=== PATIENT | female | born 1965 | race Caucasian/White ===

== ENCOUNTER 2018-05-26 14:14 | Emergency (ER) | payer OTHER ==
[2018-05-26 14:40] VITALS: BP 137/77
--- NOTE | 2018-05-26 14:47 | UC ---
UC General HPI - HPI Summary HPI Summary: PT C/O SINUS PAIN AND CONGESTION WITH GREEN DISCHARGE AND SOME COUGH WITH WHEEZING AND CONGESTION FOR ABOUT 1 MONTH. + HX ASTHMA. - History of Current Complaint Chief Complaint: UCRespiratory Stated Complaint: UPPER RESPIRATORY COMPLAINT Time Seen by Provider: 05/26/18 14:30 Hx Obtained From: Patient Hx Last Menstrual Period: January Onset/Duration: Gradual Onset Timing: Constant Pain Intensity: 0 Associated Signs & Symptoms: Positive: Cough, SOB, Wheezing. Negative: Chest Pain, Fever, Headache - Allergy/Home Medications Allergies/Adverse Reactions: Allergies Allergy/AdvReac Type Severity Reaction Status Date / Time MS Aspirin [Aspirin] Allergy Severe Hives Verified 05/26/18 14:29 MS Cephalexin [From Keflex] Allergy Severe Hives Verified 05/26/18 14:29 MS Cortisone [Cortisone] Allergy Severe Hives Verified 05/26/18 14:29 MS Erythromycin Allergy Severe Hives Verified 05/26/18 14:29 [Erythromycin] MS Penicillins [Penicillins] Allergy Severe Hives Verified 05/26/18 14:29 MS Prednisone [Prednisone] Allergy Severe hives/swell Verified 05/26/18 14:29 ing/respira tory MS Latex [Latex] Allergy Intermediate Rash Verified 05/26/18 14:29 novacaine Allergy Severe Swelling Uncoded 05/26/18 14:29 Home Medications: Home Medications Albuterol 2.5MG/3ML (0.083%)* [Ventolin 2.5 MG/3 ML NEB.KELY*] 2.5 mg INH Q6H PRN 05/26/18 [History Confirmed 05/26/18] Cholecalciferol (Vitamin D3) [Vitamin D3] 1,000 unit PO DAILY 05/26/18 [History Confirmed 05/26/18] Docusate CAP* [Colace Cap*] 100 mg PO DAILY 05/26/18 [History Confirmed 05/26/18 ] Heart Medication 1 tab PO DAILY 05/26/18 [History] Sertraline* [Zoloft*] 50 mg PO DAILY 05/26/18 [History Confirmed 05/26/18] metFORMIN* [Glucophage 1000 MG TAB *] 1,000 mg PO BID 05/26/18 [History Confirmed 05/26/18] PMH/Surg Hx/FS Hx/Imm Hx Endocrine History: Diabetes, Dyslipidemia Cardiovascular History: Hypertension Respiratory History: Asthma Psychological History: Depression - Surgical History Surgical History: Yes Surgery Procedure, Year, and Place: appy. elisa. ovaries removed/ fallopian tubes removed. . cardiac stent - Family History Known Family History: Positive: Non-Contributory - Social History Alcohol Use: None Substance Use Type: None Smoking Status (MU): Heavy Every Day Tobacco Smoker Type: Cigarettes Amount Used/How Often: 1 PPD - Immunization History Most Recent Influenza Vaccination: not this season Review of Systems All Other Systems Reviewed And Are Negative: Yes ENT: Positive: Nasal Discharge, Sinus Congestion, Sinus Pain/Tenderness Respiratory: Positive: Shortness Of Breath, Cough Cardiovascular: Negative: Chest Pain Physical Exam Triage Information Reviewed: Yes Appearance: Well-Appearing Vital Signs: Initial Vital Signs Temp 97.7 F 05/26/18 14:35 Pulse 89 05/26/18 14:35 Resp 18 05/26/18 14:35 BP 137/77 05/26/18 14:35 Pulse Ox 95 05/26/18 14:35 Vital Signs Reviewed: Yes Eyes: Positive: Conjunctiva Clear ENT: Positive: Pharynx normal, Nasal congestion, Nasal drainage - YELLOW, TMs normal, Sinus tenderness Neck: Positive: Supple, Nontender, No Lymphadenopathy Respiratory: Positive: Lungs clear, No respiratory distress, Decreased breath sounds Cardiovascular: Positive: RRR, No Murmur Abdomen Description: Positive: Nontender Bowel Sounds: Positive: Present Musculoskeletal: Positive: ROM Intact Neurological: Positive: Alert Psychological: Positive: Age Appropriate Behavior Skin Exam: Normal Course/Dx - Diagnoses Provider Diagnosis: Sinusitis, Asthma Discharge - Sign-Out/Discharge Documenting (check all that apply): Patient Departure All imaging exams completed and their final reports reviewed: No Studies - Discharge Plan Condition: Stable Disposition: HOME Prescriptions: Albuterol 2.5MG/3ML (0.083%)* [Ventolin 2.5 MG/3 ML NEB.KELY*] 2.5 mg INH Q6H PRN #1 box PRN Reason: Cough Albuterol HFA INHALER* [Ventolin HFA Inhaler*] 2 puff INH Q6H #1 mdi DOXYcycline CAP(*) [DOXYcycline 100MG CAP(*)] 100 mg PO BID 10 Days #20 cap Patient Education Materials: Asthma (DC), Sinusitis (ED) Referrals: Vibha Siegel MD [Primary Care Provider] - 7 Days Additional Instructions: USE THE INHALER OR NEBULIZER BUT NOT BOTH AT THE SAME TIME. - Billing Disposition and Condition Condition: STABLE Disposition: Home
== END 2018-05-26 14:55 | disposition home or self-care (01) ==
LOC: UCCORT 14:14
DX: J32.9 Chronic sinusitis, unspecified (principal); J45.909 Unspecified asthma, uncomplicated; E11.9 Type 2 diabetes mellitus without complications; I10 Essential (primary) hypertension; Z79.84 Long term (current) use of oral hypoglycemic drugs; F17.210 Nicotine dependence, cigarettes, uncomplicated
CPT/HCPCS: 99202; G0463

== ENCOUNTER 2018-12-10 10:16 | Emergency (ER) | payer OTHER ==
--- OUTSIDE RECORDS SUMMARY | 2018-12-10 10:38 | XMS REPORT | Continuity of Care Document ---
:1965 External Reference #:[id number] Author Name Janine Scales PA Address [address] [facility] [address] Care Team Providers Name Role Phone Suha Ornelas MD - Physical Medicine Care Team Information [employer] Vibha Siegel MD - Internal Medicine Care Team Information [employer] Rojelio Ahuja MD - Endocrinology, Care Team Information [employer] Diabetes & Metabolism Angie Garcia MD - Family Medicine Care Team Information [employer] Mindy Bonilla Endocrinology Care Team Information [employer] Operator Koby Lozoya MD - Internal Care Team Information [employer] Medicine [facility] - Care Team Information [employer]house [employer] Operator [phone] Dermatopathology Problems Active Problems Provider Date Chest pain Adan Parsons MD, PhD Onset: 08/22/2010 Tobacco user Adan Parsons MD, PhD Onset: 08/22/2010 Coronary arteriosclerosis Adan Parsons MD, PhD Onset: 08/22/2010 Mixed hyperlipidemia Kait Hebert ANP Onset: 12/28/2010 Benign essential hypertension Kait Hebert ANP Onset: 12/28/2010 Angina pectoris Adan Parsons MD, PhD Onset: 12/28/2010 Thyroid function tests abnormal Kait Hebert ANP Onset: 11/22/2013 Chest pain Kait Hebert ANP Onset: 11/22/2013 Cervical disc disorder Kait Hebert ANP Onset: 11/22/2013 Muscle, ligament and fascia disorders Kait Hebert ANP Onset: 07/26/2014 Syncope and collapse Kait Hebert ANP Onset: 09/08/2014 Atherosclerotic heart disease of [place] Kait Hebert ANP Onset: 2014 coronary artery with unspecified angina pectoris Essential hypertension Kait Hebert ANP Onset: 12/02/2014 Disorder of breast Melvina Turner DO Onset: 02/21/2016 Disorder of skin and/or subcutaneous tissue Melvina Turner DO Onset: 02/20 Vitamin deficiency Melvina Turner DO Onset: 02/21/2016 Secondary polycythemia Melvina Turner DO Onset: 02/28/2016 Type 2 diabetes mellitus Vibha Siegel MD Onset: 03/13/2016 Pseudomonas aeruginosa infection of nail ErichFlavio MD,FACS Onset: 03/26 Non-toxic multinodular goiter Melvina Turner DO Onset: 01/14/2017 Type 2 diabetes mellitus with ulcer Vibha Siegel MD Onset: 02/14/2017 Social History Type Date Description Comments Sex Unknown Tobacco Use Start: Unknown Current Cigarette Smoker 1 x 30 years Pack Daily Smokeless Tobacco Never Used Smokeless Tobacco ETOH Use Denies alcohol use Tobacco Use Start: 02/24/18 End: E-Cig Unknown Recreational Drug Use Denies Drug Use Tobacco Use Start: Unknown Patient is a current 1 ppd smoker, smokes every day Tobacco Use Start: Unknown End: E-Cig Unknown Smoking Status Reviewed: 10/02/18 E-Cig Enjoy Exercising Does not enjoy exercising Tattoo/Piercing Negative For Tattoo Allergies, Adverse Reactions, Alerts Active Allergies Reaction Severity Comments Date Aspirin HIVES she is tolerating low dose 05/30/2009 Asa Cortisone 08/16/2010 Procaine HCL 03/07/2015 Opioids - Morphine Analogues 03/07/2015 Penicillins 03/07/2015 Cephalexin 03/07/2015 Erythromycin Base 03/07/2015 Latex 12/09/2012 Zinc 02/28/2016 Inactive Allergies Ranexa hives,hot flashes Penicillin HIVES 05/30/2009 Novocain HIVES 05/30/2009 Elmiron Hives 09/29/2009 Latex 12/12/2009 Tetracycline hives 07/10/2010 Keflex hives 07/10/2010 Amoxicillin 08/16/2010 Opioids 08/16/2010 Morphine 08/16/2010 Erythromycin 08/16/2010 Plavix 03/14/2015 Medications Active Medications SIG Qnty Indications Ordering Date Provider Freestyle Lite Test Use for testing 540units Vibha Siegel, 11/20/2018 Strips glucose levels 3 MD times daily and 1 - 2 hours after meals. Basaglar Kwikpen inject 15 units 15ml E11.621 Vibha Siegel, 11/20/2018 subcutanously daily 100Unit/ML Solution Pen-Inject Furosemide 1 by mouth twice a 30tabs R60.9 Donnell Siegela, 11/20/2018 20mg day prn swelling MD Tablets Pen [place] 1/2" use with Basalgar 100units E11.621 Vibha Siegel, 2018 29G daily X 12mm Misc Pioglitazone HCL 1 po daily 30tabs E11.621 Donnell Siegela, 10/02/2018 30mg MD Tablets Nitroglycerin take one under 14tabs R07.89 iVbha Siegel, 08/24/2018 0.4mg tongue every 5 min Tablets Sub for chest pain if needed max dose 3 in 15 min Docusate Sodium Take One Capsule By 60caps K59.00 Raimundo, 03/17/2018 100mg Mouth Twice A Day as MD Shukir Capsules Needed SM Aspirin Adult Low Take One Tablet By 30tabs Danilo, 03/09/2018 Strength Mouth Every Day Clayton Erazo, 81mg Tablets M.DNorma, [facility] Vitamin E High 1 cap by mouth 30caps Vibha Siegel, 08/11/2017 Potency everyday 400Unit Capsules Freestyle Lite Blood use as directed to 1units E11.621 Vibha Siegel, Glucose Monitoring check fasting blood MD System sugars Device Losartan Potassium take one tablet by 30tabs Vibha Siegel, 02/14/2017 mouth every day 50mg Tablets Ventolin HFA 1-2 puffs every 4-6 8gm Vibha Siegel, 01/03/2017 hours as needed for MD 108(90Base) mcg/Act cough and shortness Aerosol of breath Albuterol Sulfate Use 1 Vial Via 75units Vibha Siegel, 01/03/2017 Nebulizer Every 6 MD (2.5mg/3ML) 0.083% Hours as Needed For Nebulizer For Shortness Of Breath, Cough, Wheezing Vitamin D3 Take One Capsule By 30caps E56.9 Vibha Siegel, 12/20/2016 2000Unit Mouth Every Day Capsules Blood Glucose check blood sugars 1units Vibha Siegel, 03/13/2016 Monitoring System three times a day Premium W/Device Kit Ibuprofen 1 tab by mouth every 90tabs Vibha Siegel, 03/13/2016 200mg 8 hours as needed Tablets Aspirin Ec Low Dose Take One Tablet By 30tabs Danilo, 11/15/2015 Mouth Every Day Clayton Erazo, 81mg Tablets DR Hunter, [facility] Sertraline HCL Take One Tablet By 30tabs F32.8 Vibha Siegel, 11/03/2015 50mg Mouth Every Day MD Tablets Amlodipine Besylate Take One Tablet By 30tabs I10 Linsey Maurer, 05/30/2015 Mouth Every Day MD 5mg Tablets Atorvastatin Calcium Take One Tablet By 30tabs E78.2 Danilo, 01/03/2014 Mouth Every Day Clayton Erazo, 80mg Tablets M.D., [facility] Metoprolol Succinate Take One Tablet By 30tabs Danilo, 12/30/2013 ER Mouth Every Day Clayton Erazo, 50mg Tablets ER M.D., [facility] 24HR Benadryl 2 po every 4-8 hrs Unknown 25mg prn allery sx Capsules History Medications Januvia 1 by mouth every 30tabs E11.621 Vibha Siegel, 08/24/2018 - 25mg Tablets day 10/02/2018 Caladryl use on affected 177ml R21 Vibha Siegel, 08/07/2018 - 1-8% Lotion areas 3 times a MD 08/24/2018 day Fluconazole take one pill 2tabs B37.3 Vibha Siegel, 08/07/2018 - 150mg now and 1 in 4 08/24/2018 Tablets days Freestyle Valeria 14 Take blood sugar 1units E11.621 Vibha Siegel, 2018 - Day/[place]/Flash fasting and 11/20/2018 Monitoring System three times a day DX E 11.621 Device Victoza inject 0.6mg 18ml E11.621 Vibha Siegel, 07/17/2018 - 18mg/3ML subq once daily 08/24/2018 Solution Pen-Inject then after one week increase to 1.2mg once daily Pen [place] to use with 100units E11.621 Vibha Siegel, 07/17/2018 - 31G X 6 victozia once a 10/02/2018 mm Misc day Freestyle Valeria 14 To take FBS, and 1units E11.621 Vibha Siegel, 2018 - Day/Sensor/Flash 3 times a day 11/20/2018 Monitoring System 1-2 hrs after meals Misc Furosemide 1 by mouth each 14tabs R60.9 ChristalDonnella, 06/19/2018 - 20mg morning 08/24/2018 Tablets Levofloxacin 1 po daily 10tabs Donnell Siegela, 06/19/2018 - 500mg 06/29/2018 Tablets Freestyle Precision Use to check 100units Donnell Siegela, 06/19/2018 - Virgil Blood Glucose FSBS bid 11/20/2018 Test Strips Strips Medications Administered in Office Medication SIG Qnty Indications Ordering Provider Date Vitamin B12 Injection 1000 Melvina Turner DO 09/04/2016 mcg/Ml Injection Vitamin B12 Injection 1000 Melvina Turner DO 06/07/2016 mcg/Ml Injection Immunizations CPT Code Status Date Vaccine Reaction Lot # U-Pneum Given 11/13/2016 Pneumococcal,Unspecified [id number] Given 11/13/2016 Pneumococcal Conjugate Vaccine 13 Valent For Intramuscular Use [id number] Given 11/13/2016 Influenza Virus Vaccine Quadrivalent Iiv4 none [id number] Split Preser Free Id Vital Signs Date Vital Result Comment 11/20/2018 2:56pm BP Systolic Sitting Left Arm 146 mmHg BP Diastolic Sitting Left Arm 80 mmHg Body Temperature 98.0 F Heart Rate 94 /min Respiratory Rate 18 /min Height 68 inches 5'8" Weight 247.00 lb BMI (Body Mass Index) 37.6 kg/m2 BSA (Body Surface Area) 2.24 m2 [place] body weight in kilograms 63 kg O2 % BldC Oximetry 98 % ra 10/02/2018 11:02am BP Systolic Sitting Left Arm 142 mmHg BP Diastolic Sitting Left Arm 80 mmHg Body Temperature 97.6 F Heart Rate 94 /min Respiratory Rate 24 /min Height 68 inches 5'8" Weight 241.00 lb BMI (Body Mass Index) 36.6 kg/m2 BSA (Body Surface Area) 2.21 m2 [place] body weight in kilograms 63 kg O2 % BldC Oximetry 99 % Results Test Date Facility Test Result H/L Range Note Laboratory test 11/20/19 [facility] Glycohemoglobin A1c <pending> 1 finding [address] [place], [place] [id number] [phone] Microalbumin,Random 11/20/19 [facility] Microalbumin,Urine 15.9 mg/L < 20.0 Urine [address] [place], [place] [id number] [phone] Glycohemoglobin A1c 11/20/19 [facility] Glycohemoglobin 12.0 % High 4.2-6.3 [address] (A1c) [place], [place] [address] [phone] eAG 298 mg/dL CBC W/Automated 11/19/2018 [facility] White Blood 7.6 K/uL Normal 3.1-10.[address] Count [place], [place] [id number] [phone] Red Blood Count 4.93 M/uL Normal 3.90-5.40 Hemoglobin 14.9 gm/dL Normal 11.6-15.8 Hematocrit 44.9 % Normal 36.0-46.1 Mean Cell Volume 91.1 fl Normal 80.9-99.0 Mean Corpuscular HGB 30.2 pg Normal 25.9-32.7 Mean Corpuscular HGB Conc 33.2 g/dL Normal 30.8-34.3 Platelet Count 250 K/uL Normal 155-360 Red Cell Distri Width SD 44.4 fl Normal 36-47 Red Cell Distri Width %CV 13.2 % Normal 11.7-14.4 Mean Platelet Volume 11.0 fl Normal 8.9-12.4 Neut% 55.3 % Normal 40.4-72.8 Lymph % 37.2 % Normal 20.0-42.0 [place] % 5.2 % Normal 4.3-13.2 Eo% 1.6 % Normal 0.0-6.6 Bas% 0.4 % Normal 0.0-1.1 Immature Grans 0.3 % Normal 0.0-5.0 NRBC % 0.0 /100WBC < 10/ 100 WBC Neut# 4.23 K/uL Normal 1.8-7.0 Lymph # 2.84 K/uL Normal 1.0-4.0 [place] # 0.40 K/uL Normal 0.3-0.9 Eos # 0.12 K/uL Normal 0.0-0.5 Baso # 0.03 K/uL Normal 0.0-0.1 Immature Grans Absolute 0.02 K/uL NRBC # 0.00 K/uL Comprehensive Metabolic 11/19/2018 [facility] Glucose 333 mg/dL High 74-106 Panel [address] [place] [address] [phone] BUN 12 mg/dL Normal 7-18 Creatinine 0.7 mg/dL Normal 0.6-1.3 Glom Filtration Rate, Estimate >60 mL/min >60 If >60 mL/min >60 3 BUN/Creat 17.1 ratio Sodium 134 mmol/L Low 136-145 Potassium 3.8 mmol/L Normal 3.5-5.1 Chloride 99 mmol/L Normal 98-107 Carbon Dioxide 27 mmol/L Normal 21-32 Anion Gap 8 mEq/L Normal 8-16 Calcium 9.0 mg/dL Normal 8.5-10.1 Total Protein 7.5 g/dL Normal 6.4-8.2 Albumin 3.6 g/dL Normal 3.4-5.0 Globulin 3.9 g/dL Normal 1.9-4.3 Alb/Glob 0.9 ratio Bilirubin,Total 0.3 mg/dL Normal 0.2-1.0 Sgot/Ast 15 U/L Normal 15-37 SGPT/Alt 38 U/L Normal 12-78 Alkaline Phosphatase 102 U/L Normal 45-117 LDL Cholesterol Profile 11/19/2018 [facility] Cholesterol 155 mg/dL <200 4 [address] [place] [address] [phone] Triglycerides 176 mg/dL High <150 5 HDL Cholesterol 37 mg/dL Low >40 6 LDL-Cholesterol 83 mg/dL < 100 7 Microalb/Creat 08/07/2018 [facility] Microalbumin/Creatinine 30.8 < 8 Ratio,Random [address] Ratio ug/mgCrt 30.0 [place] [address] [phone] Urine Creatinine Conc 131 mg/dL Microalbumin,Random 08/07/2018 [facility] Microalbumin,Urine 40.3 < Urine [address] mg/L 20.0 [place] [address] [phone] CBC W/Automated Diff 06/19/2018 [facility] White Blood Count 7.8 Normal 3.1-[address] K/uL 0.7 [place] [address] [phone] Red Blood Count 5.40 M/uL Normal 3.90-5.40 Hemoglobin 16.7 gm/dL High 11.6-15.8 Hematocrit 49.0 % High 36.0-46.1 Mean Cell Volume 90.7 fl Normal 80.9-99.0 Mean Corpuscular HGB 30.9 pg Normal 25.9-32.7 Mean Corpuscular HGB Conc 34.1 g/dL Normal 30.8-34.3 Platelet Count 257 K/uL Normal 155-360 Red Cell Distri Width SD 42.1 fl Normal 36-47 Red Cell Distri Width %CV 12.7 % Normal 11.7-14.4 Mean Platelet Volume 10.6 fl Normal 8.9-12.4 Neut% 56.1 % Normal 40.4-72.8 Lymph % 36.3 % Normal 20.0-42.0 [place] % 5.0 % Normal 4.3-13.2 Eo% 1.9 % Normal 0.0-6.6 Bas% 0.3 % Normal 0.0-1.1 Immature Grans 0.4 % Normal 0.0-5.0 NRBC % 0.0 /100WBC < 10/ 100 WBC Neut# 4.35 K/uL Normal 1.8-7.0 Lymph # 2.81 K/uL Normal 1.0-4.0 [place] # 0.39 K/uL Normal 0.3-0.9 Eos # 0.15 K/uL Normal 0.0-0.5 Baso # 0.02 K/uL Normal 0.0-0.1 Immature Grans Absolute 0.03 K/uL NRBC # 0.00 K/uL Comprehensive Metabolic 06/19/2018 [facility] Glucose 300 mg/dL High 74-[address] [place] [id number] [phone] BUN 11 mg/dL Normal 7-18 Creatinine 0.6 mg/dL Normal 0.6-1.3 Glom Filtration Rate, Estimate >60 mL/min >60 If >60 mL/min >60 10 BUN/Creat 18.3 ratio Sodium 138 mmol/L Normal 136-145 Potassium 4.0 mmol/L Normal 3.5-5.1 Chloride 104 mmol/L Normal 98-107 Carbon Dioxide 26 mmol/L Normal 21-32 Anion Gap 8 mEq/L Normal 8-16 Calcium 9.4 mg/dL Normal 8.5-10.1 Total Protein 7.5 g/dL Normal 6.4-8.2 Albumin 3.4 g/dL Normal 3.4-5.0 Globulin 4.1 g/dL Normal 1.9-4.3 Alb/Glob 0.8 ratio Bilirubin,Total 0.4 mg/dL Normal 0.2-1.0 Sgot/Ast 13 U/L Low 15-37 11 SGPT/Alt 33 U/L Normal 12-78 Alkaline Phosphatase 112 U/L Normal 45-117 Glycohemoglobin 06/19/2018 [facility] Glycohemoglobin 11.7 % High 4.2-6.[address] (A1c) [place], [place] [address] [phone] eAG 289 mg/dL LDL Cholesterol Profile 06/19/2018 [facility] Cholesterol 174 mg/dL <[address] [place], [place] [id number] [phone] Triglycerides 198 mg/dL High <150 14 HDL Cholesterol 33 mg/dL Low >40 15 LDL-Cholesterol 101 mg/dL < 100 16 Tissue Culture W/ 06/19/2018 [facility] Gram Stain MANY GRAM POSITI 17, [address] <SEE NOTE> [place] [address] [phone] Gram Stain MANY GRAM NEGATI <SEE NOTE> 19 Gram Stain FEW GRAM POS SUSY <SEE NOTE> 20 Gram Stain RARE WHITE BLOOD <SEE NOTE> 21 1 E11.621 2 Elevated levels of HbA1c suggest the need for more aggressive treatment of glycemia. The [place] [employer] recommends that a primary goal of therapy should be a HbA1c of <7% and that physicians should re-evaluate the treatment regimen in patients with HbA1c values consistently >8%. 3 Note: Persistent reduction for 3 months or more in an eGFR <60 mL/min/1.73 m2 defines CKD. Patients with eGFR values >/=60 mL/min/1.73 m2 may also have CKD if evidence of persistent proteinuria is present. The original MDRD equation for estimated GFR is not valid for patients less than 18 years of age. Additional information may be found at www.kdoqi.org. 4 Reference Guidelines*: Desirable: ........... < 200 mg/dL Borderline High: ..... 200-239 mg/dL High: ................ >= 240 mg/dL * The National Cholesterol Education Program (NCEP) 5 Reference Guidelines*: Normal: ............. < 150 mg/dL Borderline High: .... 150-199 mg/dL High: ............... 200-499 mg/dL Very High: .......... > 500 mg/dL * Source: National Cholesterol Education Program (NCEP) 6 Reference Guidelines*: Low HDL: ..... < 40 mg/dL Normal: ..... 40-60 mg/dL Desirable: ... > 60 mg/dL *The National Cholesterol Education Program(NCEP) 7 Reference Guidelines*: Optimal:........... <100 mg/dL Near Optimal....... 100-129 mg/dL Borderline High.... 130-159 mg/dL High............... 160-189 mg/dL Very High.......... >=190 mg/dL * Source: National Cholesterol Education Program (NCEP) 8 L97.522, E11.621 E11.621 9 E11.621, I10, E78.2 10 Note: Persistent reduction for 3 months or more in an eGFR <60 mL/min/1.73 m2 defines CKD. Patients with eGFR values >/=60 mL/min/1.73 m2 may also have CKD if evidence of persistent proteinuria is present. The original MDRD equation for estimated GFR is not valid for patients less than 18 years of age. Additional information may be found at www.kdoqi.org. 11 Values below the stated reference ranges of AST and ALT can be seen in normal populations. Clinical correlation is suggested. 12 Elevated levels of HbA1c suggest the need for more aggressive treatment of glycemia. The [place] [employer] recommends that a primary goal of therapy should be a HbA1c of <7% and that physicians should re-evaluate the treatment regimen in patients with HbA1c values consistently >8%. 13 Reference Guidelines*: Desirable: ........... < 200 mg/dL Borderline High: ..... 200-239 mg/dL High: ................ >= 240 mg/dL * The National Cholesterol Education Program (NCEP) 14 Reference Guidelines*: Normal: ............. < 150 mg/dL Borderline High: .... 150-199 mg/dL High: ............... 200-499 mg/dL Very High: .......... > 500 mg/dL * Source: National Cholesterol Education Program (NCEP) 15 Reference Guidelines*: Low HDL: ..... < 40 mg/dL Normal: ..... 40-60 mg/dL Desirable: ... > 60 mg/dL *The National Cholesterol Education Program(NCEP) 16 Reference Guidelines*: Optimal:........... <100 mg/dL Near Optimal....... 100-129 mg/dL Borderline High.... 130-159 mg/dL High............... 160-189 mg/dL Very High.......... >=190 mg/dL * Source: National Cholesterol Education Program (NCEP) 17 E11.621 18 MANY GRAM POSITIVE COCCI 19 MANY GRAM NEGATIVE BACILLI 20 FEW GRAM POS BACILLI SUGGESTIVE OF DIPTHEROIDS 21 RARE WHITE BLOOD CELLS SPECIMEN IS A MIX OF GRAM NEGATIVE AND GRAM POSITIVE ORGANISMS INDICATIVE OF CONTAMINATION DURING COLLECTION. SUGGEST REPEAT SPECIMEN IF CLINICALLY INDICATED. Procedures Date Code Description Status 10/02/2018 84834 Brief Emotional/Behav Assessment W/ Scoring Doc Per Completed [facility] 10/02/2018 58194 Incision & Removal Foreign Body, Subcutaneous Tissues; Completed Simple 08/07/2018 32607 Brief Emotional/Behav Assessment W/ Scoring Doc Per Completed [facility] 07/17/2018 43473 Brief Emotional/Behav Assessment W/ Scoring Doc Per Completed [facility] 06/19/2018 33892 Brief Emotional/Behav Assessment W/ Scoring Doc Per Completed Standard [facility] 06/19/2018 42901 Collection Of Capillary Blood Specimen Completed 06/20/2017 [id number] Mammogram Completed 12/26/2016 [id number] Diabetic Foot Exam Completed 07/17/2010 49125056 Mammogram Completed Medical Devices Description No Information Available Encounters Type Date Location Provider Dx Diagnosis Office Visit 11/20/2018 Primary Care Janine Scales E11.621 Type 2 diabetes 2:45p Office EKATERINA Lyons mellitus with foot ulcer F43.21 Adjustment disorder with depressed mood E78.2 Mixed hyperlipidemia I10 Essential (primary) hypertension L97.521 Non-prs chronic ulcer oth prt l foot limited to brkdwn skin Z13.89 Encounter for screening for other disorder R60.9 Edema, unspecified Office Visit 10/02/2018 11:00a Primary Care Yordy E11.621 Type 2 diabetes Office EKATERINA Torres mellitus with foot ulcer F43.21 Adjustment disorder with depressed mood S90.852A Superficial foreign body, left foot, initial encounter Office Visit 08/24/2018 3:00p Primary Care Bárbara Thao E11.621 Type 2 diabetes Office MS, [employer], CNM mellitus with foot ulcer R21 Rash and other nonspecific skin eruption R07.89 Other chest pain L02.421 Furuncle of right axilla Office Visit 08/07/2018 11:30a Primary Care Bárbara Thao E11.621 Type 2 diabetes Office MS, [employer], CNM mellitus with foot ulcer E78.2 Mixed hyperlipidemia I10 Essential (primary) hypertension R21 Rash and other nonspecific skin eruption L97.521 Non-prs chronic ulcer oth prt l foot limited to brkdwn skin B37.3 Candidiasis of vulva and vagina Z63.79 Other stressful life events affecting family and household F43.21 Adjustment disorder with depressed mood Office Visit 07/17/2018 3:30p Primary Care Bárbara Thao, E11.621 Type 2 diabetes Office MS, [employer], CNM mellitus with foot ulcer E78.2 Mixed hyperlipidemia I10 Essential (primary) hypertension F43.21 Adjustment disorder with depressed mood Office Visit 06/19/2018 9:00a Primary Care Yordy, E11.621 Type 2 diabetes Office EKATERINA Torres mellitus with foot ulcer L02.211 Cutaneous abscess of abdominal wall R60.9 Edema, unspecified Z63.79 Other stressful life events affecting family and household Assessments Date Code Description Provider 11/20/2018 E11.621 Type 2 diabetes mellitus with foot Janine Scales, PA ulcer 11/20/2018 F43.21 Adjustment disorder with depressed Janine Scales, PA mood 11/20/2018 E78.2 Mixed hyperlipidemia Janine Scales, PA 11/20/2018 I10 Essential (primary) hypertension Janine Scales, PA 11/20/2018 L97.521 Non-pressure chronic ulcer of other Jnaine Scales PA part of left foot limite 11/20/2018 Z13.89 Encounter for screening for other Janine Scales, PA disorder 11/20/2018 R60.9 Edema, unspecified Janine Scales, PA 10/02/2018 E11.621 Type 2 diabetes mellitus with foot Janine Scales, PA ulcer 10/02/2018 F43.21 Adjustment disorder with depressed Janine Scales, PA mood 10/02/2018 S90.852A Superficial foreign body, left foot, Janine Scales, PA initial encounter 08/24/2018 E11.621 Type 2 diabetes mellitus with foot Bárbara Thao, MS , [employer], ulcer CNM 08/24/2018 R21 Rash and other nonspecific skin Bárbara Thao, MS, [employer], eruption CN 08/24/2018 R07.89 Other chest pain Bárbara Thao, MS, [employer], CN 08/24/2018 L02.421 Furuncle of right axilla Bárbara Thao, MS, [employer], CN 08/07/2018 E11.621 Type 2 diabetes mellitus with foot Keesha, Bárbara, MS , [employer], ulcer [facility] 08/07/2018 E78.2 Mixed hyperlipidemia Gagen, Bárbara, MS, [employer], CN 08/07/2018 I10 Essential (primary) hypertension Bárbara Thao, MS, [employer] , [facility] 08/07/2018 R21 Rash and other nonspecific skin Bárbara Thao, MS, [employer], eruption [facility] 08/07/2018 L97.521 Non-pressure chronic ulcer of other Keesha, Bárbara, MS , [employer], part of left foot limite [facility] 08/07/2018 B37.3 Candidiasis of vulva and vagina Bárbara Thao, MS, [employer], [facility] 08/07/2018 Z63.79 Other stressful life events Bárbara Thao, MS, [employer], affecting family and household [facility] 08/07/2018 F43.21 Adjustment disorder with depressed Bárbara Thao, MS, [employer], mood [facility] 08/03/2018 E11.621 Type 2 diabetes mellitus with foot Bárbara Thao, MS , [employer], ulcer [facility] 08/03/2018 L97.521 Non-pressure chronic ulcer of other Keesha, Bárbara, MS , [employer], part of left foot limite [facility] 07/17/2018 E11.621 Type 2 diabetes mellitus with foot Gagdemond, Bárbara, MS , [employer], ulcer [facility] 07/17/2018 E78.2 Mixed hyperlipidemia Gagen, Bárbara, MS, [employer], CN 07/17/2018 I10 Essential (primary) hypertension Bárbara Thao, MS, [employer] , [facility] 07/17/2018 F43.21 Adjustment disorder with depressed Virginie Thaoline, MS, [employer], mood CNM 07/13/2018 E11.621 Type 2 diabetes mellitus with foot Bárbara Thao MS , [employer], ulcer CNM 07/13/2018 E78.2 Mixed hyperlipidemia Bárbara Thao MS, [employer], CNM 07/13/2018 I10 Essential (primary) hypertension Bárbara Thao MS, [employer] , CNM 06/19/2018 E11.621 Type 2 diabetes mellitus with foot Janine Scales PA ulcer 06/19/2018 L02.211 Cutaneous abscess of abdominal wall Janine Scales PA 06/19/2018 R60.9 Edema, unspecified Janine Scales PA 06/19/2018 Z63.79 Other stressful life events Janine Scales PA affecting family and household Plan of Treatment 11/20/2018 - Janine Scales, PAE11.621 Type 2 diabetes mellitus with foot ulcerNew Medication:Basaglar Kwikpen 100 Unit/ML - inject 15 units subcutanously dailyPen [place] 1/2" 29 G X 12mm - use with Basalgar dailyComments:Uncontrolled DM.HgbA1c 12.0Tolerating Piogliazone 30 mg dailyReviewed past medications and intolerance/side effects.She has periodically used sisters fast acting insulin when her FSBS are near 500.Recommend long-acting insulin. Start with 15 units daily. Call in 1 week, will titrate this upF43.21 Adjustment disorder with depressed moodComments: Ongoing symptoms. These are situational. I do not feel higher dose of medications would be helpful.Pt needs to be taking care of herself, she puts everyone else first.E78.2 Mixed hyperlipidemiaComments:Lipids stable.Remain on Atorvastatin 80 mgI10 Essential (primary) hypertensionComments:On Losartan, Amlodipine and Metoprolol.BP Goal < 130/80.Add in Furosemide due to peripheral ksqdnN63.521 Non-pressure chronic ulcer of other part of left foot limiteComments:Discussed importance of follow-up with wound clinic. She needs to have ulceration debrided regularly.Message to assurance services manager health care regarding insurance and transportation [id number] Encounter for screening for other disorderComments:has been exposed to blood. Pt request HIV and HepC testing.R60.9 Edema, unspecifiedNew Medication:Furosemide 20 mg - 1 by mouth twice a day prn swellingComments:Add in Furosemide. Edema bilaterally. L>R. Functional Status Functional Condition Comment Date Status Independent with all ADL's Active Glasses Active Mental Status Description No Information Available Referrals Refer to Dr Reason for Referral Status Appt Date [facility] Left great toe Closed 10/12/2018 ulceration. Needs routine care. Last seen 08/13/18 [address] [place] [address] [phone] [facility] uncontrolled type 2 diabetes Scheduled 03/201808/25/18 faxed notes...EKATERINA Tavarez [id number] [phone]
[2018-12-10 11:09] VITALS: BP 122/79
--- NOTE | 2018-12-10 11:19 | UC ---
Skin Complaint HPI - HPI Summary HPI Summary: Patient is a 53yo female with PMH significant for diabetes, diabetic neuropathy , diabetic ulcers, heart disease, and hypertension presenting with left leg pain , swelling, redness, and edema "for a couple days." States the swelling has gone down since taking her diuretics the past two days but that she is now concerned for a blood clot. She has an non healing left big toe ulcer that is being cared for by wound care every week. Denies fever, chills, n/v/d. Denies SOB and difficulty breathing. Patient still able to ambulate. Patient is an every day smoker. Patient denies DVT or blood clot in the past. States she " just wants an ultrasound so that she can rule out a blood clot and get home to take care of her sister." - History of Current Complaint Chief Complaint: UCLowerExtremity Stated Complaint: LEFT LEG-RED,WARM,HARD Hx Last Menstrual Period: January Onset/Duration: Gradual Onset, Lasting Days Pain Intensity: 3 Pain Scale Used: 0-10 Numeric - Allergy/Home Medications Allergies/Adverse Reactions: Allergies Allergy/AdvReac Type Severity Reaction Status Date / Time aspirin Allergy Hives Verified 12/10/18 11:35 cephalexin Allergy Hives Verified 12/10/18 11:35 cortisone Allergy Hives Verified 12/10/18 11:35 erythromycin base Allergy Hives Verified 12/10/18 11:35 latex Allergy Rash Verified 12/10/18 11:35 Penicillins Allergy Hives Verified 12/10/18 11:35 prednisone Allergy Hives/Diff. Verified 12/10/18 11:35 Breathing/I tching novacaine Allergy Severe Swelling Uncoded 12/10/18 10:59 Home Medications: Home Medications Lisinopril TAB* [Prinivil TAB*] 5 mg PO DAILY 12/10/18 [History Confirmed ] Long Acting Insulin 15 units SUBCUT DAILY 12/10/18 [History] Sugar Pill 30 mg PO DAILY 12/10/18 [History] Vitamin E 4,000 unit PO DAILY 12/10/18 [History Confirmed 12/10/18] PMH/Surg Hx/FS Hx/Imm Hx Previously Healthy: Yes Endocrine History: Diabetes Cardiovascular History: Cardiac Disease, Hypertension - Surgical History Surgical History: Yes Surgery Procedure, Year, and Place: appy. elisa. ovaries removed/ fallopian tubes removed. . cardiac stent - Family History Known Family History: Positive: Non-Contributory - Social History Alcohol Use: None Substance Use Type: None Smoking Status (MU): Heavy Every Day Tobacco Smoker Type: Cigarettes Amount Used/How Often: 1 PPD also vapes - Immunization History Most Recent Influenza Vaccination: not this season Review of Systems All Other Systems Reviewed And Are Negative: Yes Constitutional: Positive: Negative. Negative: Fever, Chills Skin: Positive: Other - redness of LLE and foot Respiratory: Positive: Negative. Negative: Shortness Of Breath Cardiovascular: Positive: Negative. Negative: Palpitations, Chest Pain Gastrointestinal: Positive: Negative. Negative: Abdominal Pain, Vomiting, Diarrhea, Nausea Neurovascular: Positive: Decreased Sensation Musculoskeletal: Positive: Calf Tenderness, Edema, Myalgia. Negative: Arthralgia, Decreased ROM Physical Exam Triage Information Reviewed: Yes Appearance: Well-Appearing, No Pain Distress, Well-Nourished Vital Signs: Initial Vital Signs Temp 98.2 F 12/10/18 11:04 Pulse 98 12/10/18 11:04 Resp 16 12/10/18 11:04 BP 122/79 12/10/18 11:04 Pulse Ox 97 12/10/18 11:04 Eyes: Positive: Conjunctiva Clear ENT: Positive: Hearing grossly normal Neck: Positive: Supple Respiratory Exam: Normal Respiratory: Positive: Lungs clear, Normal breath sounds, No respiratory distress Cardiovascular: Positive: RRR, Brisk Capillary Refill, Distal Pulses Absent - LLE. Negative: Pulses Normal, Tachycardia Musculoskeletal Exam: Normal Musculoskeletal: Positive: Strength Intact, ROM Intact, Edema @ - LLE and foot Neurological: Positive: Alert Psychological: Positive: Age Appropriate Behavior Skin: Positive: Other - significant erythema and warmness noted of left foot and lower leg. open, nonhealing diabetic ulcer noted on left plantar surface great toe. Course/Dx - Course Course Of Treatment: 53 yr old female seen with EKATERINA. Patient is a diabetic with chronic lympedema left lower extremity, chronic ulcer plantar surface left great toe,and she is a heavy smoker. She has redness from the ulcer toe up the left leg and calf. On exam: pulses not palpable left foot, ankle. She has cellulitis of foot up to the left calf. Ulcer bottom left great toe. Right foot with pulses present. Assesment: Ulcer left great toe due to DM and probable vascular disease and smoking. It is highly recommended she go to the ER for full work up and evaluation. She has been told she is at risk for loss of leg and sepsis , , disability. She verbalized she will not go to the hospital today for further work up. she is signing out AMA. Hilario Mancilla MD Discussed and evaluated this patient with Dr. Mancilla. We agreed patient should be evaluated in the ED. Explained to the patient that she needs to be worked up in the hospital and explained risks of not doing so. Patient voiced understanding but verbalized she will not go to the ED because she needs to go home to take care of her sister. Patient signed out AMA. - Diagnoses Provider Diagnosis: Cellulitis of left lower limb Discharge ED - Sign-Out/Discharge Documenting (check all that apply): Patient Departure All imaging exams completed and their final reports reviewed: No Studies - Discharge Plan Condition: Stable Disposition: AGAINST MEDICAL ADVICE Referrals: Vibha Siegel MD [Primary Care Provider] - Additional Instructions: The provider that evaluated you today thinks that you need additional testing that can be completed the emergency department. It is recommended that you go directly to emergency department for further evaluation. This evaluation included blood work or imaging. This testing will be directed and decided by the provider that evaluates you at the emergency department. If pain becomes worse, you feel lightheaded, you have uncontrolled vomiting, or you have any other concerns it is recommended that you contact 911. - Billing Disposition and Condition Condition: STABLE Disposition: Against Medical Advice
== END 2018-12-10 11:58 | disposition left against medical advice (07) ==
LOC: UCCORT 10:16
DX: L03.116 Cellulitis of left lower limb (principal); E11.9 Type 2 diabetes mellitus without complications; I10 Essential (primary) hypertension; Z95.5 Presence of coronary angioplasty implant and graft; Z88.0 Allergy status to penicillin; Z88.8 Allergy status to other drugs, medicaments and biological substances; Z88.6 Allergy status to analgesic agent; Z88.4 Allergy status to anesthetic agent; Z88.1 Allergy status to other antibiotic agents; Z91.040 Latex allergy status; F17.210 Nicotine dependence, cigarettes, uncomplicated
CPT/HCPCS: 99212; G0463